=== PATIENT | male | born 1960 | race Caucasian/White ===

== ENCOUNTER 2022-07-01 09:00 | Emergency (ER) | payer SELFPAY ==
[~2022-07-01] VITALS: Ht 180.3 cm; Wt 51.3 kg
[2022-07-01 09:38] LABS: HEMATOCRIT 42.2 % (42.0-52.0); MEAN CELL VOLUME 92.5 fl (80.0-94.0); MEAN CORPUSCULAR HGB CONC 34.6 g/dl (33.0-37.0); PLATELET COUNT AUTOMATED 86 10*3/uL (130-400); RED BLOOD COUNT 4.56 10*6/uL (4.50-5.90); RED CELL DISTRI WIDTH 13.9 % (0-14.5); WHITE BLOOD COUNT 15.2 10*3/uL (4.8-10.8)
[2022-07-01 09:39] LABS: MANUAL DIFF REFLEX YES
[2022-07-01 09:53] LABS: ALKALINE PHOSPHATASE 383 U/L (45-117); BUN 41 mg/dl (7-24); CHLORIDE 96 mmol/L (98-107); CREATININE 1.41 mg/dL (0.70-1.30); LIPASE 58 U/L (73-393); POTASSIUM 3.2 mmol/L (3.5-5.1); SGOT/AST 122 IU/L (3-35); SGPT/ALT 82 U/L (12-78); SODIUM 134 mmol/L (136-145); TOTAL PROTEIN 6.4 gm/dL (6.4-8.2)
[2022-07-01 10:02] LABS: PLATELET SUFFICIENCY LOW (NORMAL); POLYCHROMASIA SLIGHT; TOTAL CELLS COUNTED 100 #CELLS; TOXIC GRANULATION MODERATE; VACUOLATION OF NEUTROPHILS SLIGHT
== END 2022-07-01 18:25 | disposition short-term general hospital (02) ==
LOC: ED 09:00
PROVIDERS: Internal Medicine
DX: K55.9 Vascular disorder of intestine, unspecified (principal); F17.200 Nicotine dependence, unspecified, uncomplicated; C79.9 Secondary malignant neoplasm of unspecified site